=== PATIENT | male | born 1945 | race Caucasian/White ===

== ENCOUNTER → 2018-11-08 | Outpatient (CLI) | payer OTHER, MEDICARE ==
--- NOTE | 2018-11-08 18:41 | CONS ---
Assessment/Plan Assessment/Plan Hospital Course (Demo Recall) 73-year-old male presents with left worse than right lateral hip pain. He does have eccentric wear of the polyethylene liner on the right hip. For the most part this is asymptomatic as his GT bursitis in the right is minimal. In regards to his fxunj-uv-kdyka hip he has not had serum metal ion levels measured since 2014. At this time will order new cobalt and chromium levels as well as get an MRI with metal reduction artifact sequencing secondary to the patient's pain. Depending on the results of the metal ion levels and the MRI a treatment plan will be formulated. In regards to the right total hip will continue to be monitored on a yearly basis to ensure that the eccentric wear is not worsening and a revision does not need to be completed. Follow-up after cobalt and chromium serum iron levels and after MRI with metal reduction artifact sequencing. Consultation Date/Type/Reason Admit Date/Time Date of Consultation: Nov 08, 2018 Reason for Consultation Bilateral hip pain Date/Time of Note DATE: 11/08/18 TIME: 18:30 Hx of Present Illness 73-year-old male presenting to clinic with left much worse than right hip pain. The pain is on the lateral aspect of the hips. He had a right total hip arthroplasty 1993 and a left total hip arthroplasty in [address] Mendoza. Of note the left total hip is a sazln-sk-vydhy with an ASR socket. Patient is doing very well until just under a year ago. He did well up to a slowly increasing pain on the lateral aspect of his hips. Denies any groin pain denies any fevers and chills. Denies pain elsewhere. He has pain over the lateral aspect of his hips with putting on his shoes when he flexes hip as well as when walking. He rates the pain 3/10. Describes pain as sharp. Uses a cane at times secondary to a limp. He can walk 2 blocks without significant pain. Patient denies fever, chills, shortness of breath, chest pain, nausea/vomiting, constipation, diarrhea, numbness, and tingling. Past Medical History History of heart valve replacement Hypertension hypothyroidism CLL Diabetes Past Surgical History Right total hip arthroplasty [address] Mendoza Left total hip arthroplasty [address] Mendoza I will surgery Heart valve replacement Cholecystectomy Family History Significant Family History: no pertinent family hx Social History Alcohol Use: none Smoking Status: Former smoker Drug Use: none Exam/Review of Systems Exam Vitals Weight: 200 pounds Height: 5 foot 9 inches Temperature: 98.3 Heart Rate: 71 Blood Pressure: 125/70 Respiratory Rate: 14 Exam General: Alert, oriented. Vital signs: Noted on the chart. Heart: Regular rate and rhythm. Lungs: No respiratory distress. No accessory muscle use. Musculoskeletal: Well developed male in no apparent distress. Gait demonstrates a mild Trendelenburg with antalgic components and no short leg component. Standing, the pelvis is level and supine there is no true leg length discrepancy. There is tenderness over trochanteric bursa and IT band much worse in the left than right Positive Obers Test Range of motion: Right Hip Flexion: 90 Extension: 0 Internal rotation: 10 External rotation: 30 Abduction: 45 Adduction: 10 Range of motion: Left Hip Flexion: 100 Extension: 0 Internal rotation: 5 External rotation: 45 Abduction: 45 Adduction: 10 Sitting there is no pelvic obliquity. Minimal to no pain at the extremes of motion of the affected hip. Skin was intact throughout both lower extremities. Sensation intact to light touch in a sural, saphenous, deep peroneal, superficial peroneal, medial and lateral plantar nerve distribution. Neurovascular exam showed 5/5 strength in the abductors, quads, EHL/tibialis anterior/gastroc. Normal and symmetrical pulses were palpated in both the dorsalis pedis and posterior tibial arteries. There is no sign of venous stasis. Imaging Imaging Xrays obtained in clinic today and personally reviewed by myself: AP pelvis and AP/Lat of the left and right hip demonstrate bilateral hips s/p MAURY with hip reduced. The right hip shows progressive eccentric wear of the acetabular liner. There is no gross ostial lysis, component loosening, or fracture. The left hip demonstrates a llhwc-fs-npoty hip with an ASR socket. No osteolysis, or signs of component loosening. There is stress shielding of the medial calcar. Components in good position and alignment. No signs of osteolysis, loosening, component failure, or fracture. No acute complications. ASHLEY VALENTINO MD Nov 08, 2018 18:41
== END | disposition home or self-care (01) ==
LOC: HKI 15:40
PROVIDERS: ATTEND Orthopaedic Surgery Adult Reconstructive Orthopaedic Surgery
DX: M25.552 Pain in left hip (principal); M25.551 Pain in right hip; I10 Essential (primary) hypertension; E03.9 Hypothyroidism, unspecified; E11.9 Type 2 diabetes mellitus without complications; Z96.643 Presence of artificial hip joint, bilateral; Z95.2 Presence of prosthetic heart valve
CPT/HCPCS: 73523; G0463

== ENCOUNTER → 2018-12-20 | Outpatient (CLI) | payer OTHER, MEDICARE ==
--- NOTE | 2018-12-20 22:18 | CONS ---
Consult Date/Type/Reason Admit Date/Time Initial Consult Date Date/Time of Note DATE: 12/20/18 TIME: 21:55 Subjective 73-year-old male who follows up today to review metal ion levels, laboratory inflammatory markers, MRI of the pelvis. He has a known [id number] hip on the left. At last visit he had significant greater trochanteric bursitis worse in the right than left. Patient states in the interim his greater trochanteric bursitis has significantly improved. 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 Objective Vitals Weight: 197 pounds Height: 5 foot 9 inches Heart Rate: 81 Blood Pressure: 103/51 Exam General: Alert, oriented. Vital signs: Noted on the chart. Heart: Regular rate and rhythm. Lungs: No respiratory distress. No accessory muscle use. Musculoskeletal: Well developed male in no apparent distress. Gait demonstrates a mild Trende lenburg with antalgic components and no short leg component. Standing, the pelvis is level and supine there is no true leg length discrepancy. There is mild tenderness over trochanteric bursa and IT band worse on the right than left. Range of motion: Right Hip Flexion: 90 Extension: 0 Internal rotation: 10 External rotation: 30 Abduction: 45 Adduction: 10 Range of motion: Left Hip Flexion: 100 Extension: 0 Internal rotation: 5 External rotation: 45 Abduction: 45 Adduction: 10 Sitting there is no pelvic obliquity. Minimal to no pain at the extremes of motion of the affected hip. Skin was intact throughout both lower extremities. Sensation intact to light touch in a sural, saphenous, deep peroneal, superficial peroneal, medial and lateral plantar nerve distribution. Neurovascular exam showed 5/5 strength in the abductors, quads, EHL/tibialis anterior/gastroc. Normal and symmetrical pulses were palpated in both the dorsalis pedis and posterior tibial arteries. There is no sign of venous stasis. Results/Medications Results 24 hrs Collection date 11/08/2018 Serum cobalt: 28.3 Serum chromium: 2.1 Collection date 11/15/2018 ESR: 67 CRP: 51.6 Imaging MRI with MAVRIC sequencing of the pelvis was personally reviewed. There is no intrapelvic mass or adenopathy. No pseudotumor formation. There is low-grade 1/3 strain to the left pectineus and abductor brevis muscles. There are no significant changes or tendinosis to the left gluteus medius or minimus. Minimal GT bursitis bilaterally. There is mild edema around the right gluteus minimus and medius. Bilateral hamstring tendinosis without tendon tear. Assessment/Plan Hospital Course (Demo Recall) 73-year-old male with a [id number] left total hip arthroplasty now with significantly elevated cobalt metal ion levels, elevated CRP, elevated ESR. However clinically his symptoms have improved with no treatment and are minimal. His MRI with metal reduction sequencing does not show any pseudotumor formation or any tendinopathy of the gluteus medius or minimus on the left hip. In regards to findings expected in cases myelosis the MRI is quite benign. His elevated ESR and CRP can also be explained by some of his medical problems. His ulcerative colitis could be raising his baseline ESR and CRP. His stage IV liver cirrhosis could also increase his baseline CRP. Therefore weighing the benefits and risks for revision surgery I am recommending to the patient to not undergo revision left total hip arthroplasty at this time. I am recommending close clinical follow-up with new metal ion and inflammatory markers in 6 months. If he has an increase in pain we will order new MRI at that time as well. Follow-up 6 months ASHELY VALENTINO MD December 20, 2018 22:13
== END | disposition home or self-care (01) ==
LOC: HKI 15:11
PROVIDERS: ATTEND Orthopaedic Surgery Adult Reconstructive Orthopaedic Surgery
DX: Z47.89 Encounter for other orthopedic aftercare (principal); Z96.642 Presence of left artificial hip joint
CPT/HCPCS: G0463